=== PATIENT | male | born 2005 | race African-American/Black ===

== ENCOUNTER 2023-12-04 08:17 | Emergency (ER) | payer OTHER ==
[~2023-12-04] VITALS: Ht 182.9 cm; Wt 119.4 kg
[2023-12-04] MEDS ORDERED: FLUORESCEIN OPHTH 1MG STRIP OD ONE (10:20)
[2023-12-04] MEDS ORDERED: TETRACAINE 0.5% OPHTH SOLN 4ML OD ONE (10:20)
[2023-12-04] MEDS ORDERED: AMOX875T2 PO (10:43)
[2023-12-04 10:49] VITALS: BP 130/82; TEMP 97.6; O2SAT 98
[2023-12-04] MEDS: AUGMENTIN 875 MG TAB PO ONE (10:57)
== END 2023-12-04 10:59 | disposition home or self-care (01) ==
LOC: M ED 08:17
DX: L03.213 Periorbital cellulitis (principal); Z79.2 Long term (current) use of antibiotics

== ENCOUNTER 2025-05-28 06:07 | Emergency (ER) | payer OTHER ==
[~2025-05-28] VITALS: Ht 182.9 cm; Wt 126.4 kg
[~2025-05-28 06:07] MED LIST: AMOX875T2 PO
[2025-05-28 06:32] LABS: BASO # 0.0 10^3/uL (0.0-0.2); BASO % 0.4 % (0.0-1.0); EOS # 0.1 10^3/uL (0.0-0.5); EOS % 1.7 % (0.0-3.0); LYMPH # 2.4 10^3/uL (1.5-5.0); LYMPH % 45.2 % (24.0-44.0); MONO # 0.4 10^3/uL (0.0-0.8); MONO % 7.1 % (2.0-8.0); NEUTROPHILS # 2.4 10^3/uL (1.5-8.5); NEUTROPHILS % 45.2 % (36.0-66.0); PLATELET COUNT, AUTOMATED 188 10^3/uL (150-450)
[2025-05-28 07:06] LABS: ALT/SGPT 34 U/L (7.0-40); AST/SGOT 25 U/L (<34); CALCIUM LEVEL 9.2 MG/DL (8.5-10.1); CARBON DIOXIDE LEVEL 27 MMOL/L (20-31); CHLORIDE LEVEL 104 MMOL/L (98-107); CREATININE FOR GFR 0.85 MG/DL (0.70-1.30); GLOMERULAR FILTRATION RATE > 90.0 (>60); POTASSIUM SERUM 4.4 MMOL/L (3.5-5.1); SODIUM LEVEL 141 MMOL/L (136-145)
[2025-05-28] MEDS ORDERED: HOME MED LIST COMPLETE! XX SCH (10:30)
[2025-05-28] MEDS: ONDANSETRON 4MG/2ML VIAL IV ONE (10:49)
[2025-05-28] MEDS: NS (Normal Saline) 0.9% 1,000 ML IV ONE (10:49)
[2025-05-28] MEDS ORDERED: ONDA-282 PO (12:04)
[2025-05-28 12:20] VITALS: BP 118/68; TEMP 96.9; O2SAT 98
== END 2025-05-28 12:28 | disposition home or self-care (01) ==
LOC: M ED 06:07
DX: A05.9 Bacterial foodborne intoxication, unspecified (principal); Z91.018 Allergy to other foods
CPT/HCPCS: 80048; 80076; 83690; 85025; 87486; 87581; 87633; 87798; 96361; 96374; 99284; J2405